=== PATIENT | female | born 1975 | race Caucasian/White ===

== ENCOUNTER → 2021-09-12 | Outpatient (CLI) | payer BC | LOC: EROP 14:55 | DX: Z20.822 Contact with and (suspected) exposure to COVID-19 (principal) | CPT/HCPCS: U0002 ==

== ENCOUNTER → 2021-09-20 | Outpatient (CLI) | payer BC ==
[2021-09-20 11:04] LABS: HEMOGLOBIN 14.6 gm/dl (12.3-15.3); RED BLOOD COUNT 4.59 M/UL (4.00-5.10); WHITE BLOOD COUNT 21.9 K/UL (4.5-11.0)
[2021-09-20 11:50] LABS: BUN/CREATININE RATIO 23 (0-10)
== END ==
LOC: LAB 10:36
PROVIDERS: Nurse Practitioner Family
DX: M54.50 Low back pain, unspecified (principal); R68.89 Other general symptoms and signs; R79.89 Other specified abnormal findings of blood chemistry; E78.5 Hyperlipidemia, unspecified; R53.83 Other fatigue; R73.09 Other abnormal glucose; E55.9 Vitamin D deficiency, unspecified
CPT/HCPCS: 36415; 72110; 80053; 80061; 83036; 84443; 85027

== ENCOUNTER 2021-09-21 17:26 | Emergency (ER) | payer BC ==
[2021-09-21 19:18] LABS: BUN/CREATININE RATIO 18 (0-10)
[2021-09-21 19:48] LABS: RED BLOOD COUNT 4.41 M/UL (4.00-5.10)
[2021-09-21 19:51] LABS: WHITE BLOOD COUNT 10.7 K/UL (4.5-11.0)
== END 2021-09-21 22:10 | disposition home or self-care (01) ==
LOC: ER1 17:26
PROVIDERS: Physician Assistant
DX: U07.1 COVID-19 (principal); E11.9 Type 2 diabetes mellitus without complications; Z90.710 Acquired absence of both cervix and uterus; F17.200 Nicotine dependence, unspecified, uncomplicated
CPT/HCPCS: 70450; 71045; 80053; 81001; 82962; 83605; 85025; 87040; 87081; 87880; 96374; 96375; 99283; J1885; J2405; J7030; U0002

== ENCOUNTER → 2021-09-23 | Outpatient (CLI) | payer BC ==
[~2021-09-23] VITALS: Ht 157.5 cm; Wt 64.9 kg
== END ==
LOC: EROP 12:02
DX: U07.1 COVID-19 (principal); Z23 Encounter for immunization; E11.9 Type 2 diabetes mellitus without complications
CPT/HCPCS: M0247; Q0247